=== PATIENT | female | born 1965 | race Caucasian/White ===

== ENCOUNTER 2017-01-31 17:15 | Emergency (ER) | payer SELFPAY ==
[~2017-01-31] VITALS: Ht 154.9 cm; Wt 70.6 kg
[2017-01-31 17:34] VITALS: BP 146/98
[2017-02-01] MEDS ORDERED: ULTRAM50 MG PO (15:29)
== END 2017-01-31 18:52 | disposition left against medical advice (07) ==
LOC: EME 17:15
DX: S05.91XA Unspecified injury of right eye and orbit, initial encounter (principal); Z53.21 Procedure and treatment not carried out due to patient leaving prior to being seen by health care provider

== ENCOUNTER 2017-02-01 12:41 | Emergency (ER) | payer BC ==
[~2017-02-01] VITALS: Ht 154.9 cm; Wt 70.3 kg
[2017-02-01] MEDS ORDERED: ULTRAM50 MG PO (15:29)
[2017-02-01 15:39] VITALS: BP 114/71
== END 2017-02-01 15:40 | disposition home or self-care (01) ==
LOC: EME 12:41 → RME 12:41
DX: S00.83XA Contusion of other part of head, initial encounter (principal); H11.31 Conjunctival hemorrhage, right eye; Y04.2XXA Assault by strike against or bumped into by another person, initial encounter; R19.7 Diarrhea, unspecified; F17.200 Nicotine dependence, unspecified, uncomplicated
CPT/HCPCS: 70486; 99281; 99284